=== PATIENT | female | born 1940 | race Caucasian/White ===

== ENCOUNTER 2017-09-13 14:11 | Inpatient (IN) | payer MEDICARE ==
[~2017-09-13] VITALS: Ht 165.1 cm; Wt 96.8 kg
[2017-09-13] VITALS (10 sets, daily range): BP systolic 97–156; BP diastolic 50–72
--- NOTE | ~2017-09-13 | CON ---
[place], [place] REPORT OF CONSULTATION NAME: BOLIVAR BROCK UNIT #: [id number] ROOM: 420 DOCTOR: NELSON DONNELLY MD BIRTHDATE: [birth year] DOS: 09/17/2017 CHIEF COMPLAINT: "I don't know what I am doing here, when do I get to leave?" HISTORY OF PRESENT ILLNESS: This is a 76-year-old female who presented to [facility] from the [facility] with increased confusion with a low pulse ox reading. The patient was ultimately diagnosed with severe sepsis, acute respiratory failure with hypoxia, bronchitis, acute on chronic renal failure, metabolic encephalopathy. The patient of note from a psychiatric standpoint does have a history of depression and has had a significantly poor appetite as well as some sleep issues, this despite being on Cymbalta. MENTAL STATUS: The patient is alert and oriented to person and place. She is not oriented to time. She could not tell me how long she has been here, stating that she has been here for several weeks. When I asked her where she had come from, whether it was home or a nursing facility, she stated that she was admitted directly from home in to the hospital. There are significant mental status gaps. She does come across as being somewhat depressed with a little bit of a blunted affect. There is no brittany or hypomania. There are no overt auditory or visual hallucinations. No delusions, no paranoia. Short term memory has gaps. DIAGNOSIS: Major depression, recurrent. PLAN: Given the fact that she continues to have significant poor appetite, I will discontinue the Cymbalta in lieu of Remeron 15 mg at bedtime. At this point, she is not suicidal or homicidal and does not represent substantial risk to self, so I see no reason to force her to the [facility], rather if she does return to the [facility], I can follow her upon her readmission there. NELSON DONNELLY MD CM:CONSTR:REPORT OF CONSULTATION 1023 09/17/17 2140 interface
--- NOTE | ~2017-09-13 | PROC NOTE ---
[place], [place] PROCEDURE NOTE [id number] UN[facility] #: [id number] ROOM: 420 DOCTOR: MARCIO SANCHEZ BIRTHDATE: [birth year] DOS: 09/15/2017 MODIFIED BARIUM SWALLOW LOCATION: [facility], room 428, bed 1. DOCTOR: Dr. Almaraz. RADIOLOGIST: Dr. Dong. BACKGROUND INFORMATION: The patient is a 76-year-old female who was seen for a modified barium swallow. This test was ordered to determine most appropriate diet consistency. Medical history is significant for recent fall with brain bleed, multiple fractures of the ribs and fractured sacrum. Further medical history includes severe sepsis, acute respiratory failure with hypoxia and metabolic encephalopathy. This patient comes from a intermediate. She had been ordered an outpatient modified barium swallow, which was scheduled to be completed 09/14/2017, however, was unable to be completed due to patient being sent to the hospital. The patient was seen at bedside yesterday and at that time displayed significant confusion. She was recommended yesterday to continue with a soft diet and honey-thick liquids. When seen for treatment today, the patient was noted to be much more alert and responsive. She was trialled with thin liquids and appeared to tolerate them well. Therefore, modified barium swallow was recommended in order to determine candidacy for diet upgrade. For today's study, the patient was alert and able to follow commands. Oral peripheral examination revealed presence of upper and lower dentures. Lingual, labial and buccal skills were within normal limits in terms of strength, range of motion and coordination. The patient was able to volitionally cough and swallow. METHODS AND MATERIALS USED FOR THE EXAM: The patient was positioned in the lateral plane and the exam was viewed under fluoroscopy. The patient was presented with a variety of consistencies to assess swallowing skills including applesauce mixed with barium presented in half teaspoon amounts, barium-coated cookie presented in bite size piece and nectar and thin liquid barium taken by cup in single sip size amounts. ORAL PHASE: Unremarkable. PHARYNGEAL PHASE: Unremarkable. ESOPHAGEAL PHASE: This phase of the swallow was not formally assessed during this examination. IMPRESSIONS AND RECOMMENDATIONS: Based upon assessment results, this 76-year-old patient presents with oral and pharyngeal swallowing skills that are within normal limits. Recommend regular diet and thin liquids. Follow up swallowing therapy is not recommended at this time. The patient would benefit from assessment of cognitive skills due to her history as well as current confusion. Results and recommendations were shared with the patient and her [place], [place] PROCEDURE NOTE NAME: BOLIVAR BROCK UNIT #: [id number] ROOM: [facility] DOCTOR: MARCIO SANCHEZ BIRTHDATE: [birth year] nurse and they verbalized understanding. Thank you very much for this referral. Should you have any questions regarding this patient, please contact the speech pathologist at [phone]. MARCIO SANCHEZ CM:PROCNOTE:PROCEDURE NOTE [id number] MARCIO SANCHEZ
[2017-09-13] MEDS ORDERED: ATIVAN1 MG PO (14:30)
[2017-09-13] MEDS ORDERED: ASPIRIN81 M1 PO (14:30)
[2017-09-13] MEDS ORDERED: GLUCOTROL5 MG PO (14:31)
[2017-09-13] MEDS ORDERED: CYMBALTA60 MG PO (14:31)
[2017-09-13] MEDS ORDERED: GABAPENTIN100 M2 PO (14:31)
[2017-09-13] MEDS ORDERED: NORVASC5 MG PO (14:32)
[2017-09-13] MEDS ORDERED: MYRBETRIQ50 M1 PO (14:32)
[2017-09-13] MEDS ORDERED: COZAAR50 M1 PO (14:32)
[2017-09-13] MEDS ORDERED: OXYCODONE HCL10 M1 PO (14:33)
[2017-09-13] MEDS ORDERED: OCUVITE EYE +1 EACH PO (14:33)
[2017-09-13] MEDS ORDERED: PERCOCET 5-3251 EACH PO (14:34)
[2017-09-13] MEDS ORDERED: ZANTAC 150150 MG PO (14:34)
[2017-09-13] MEDS ORDERED: PRAVACHOL40 MG PO (14:34)
[2017-09-13] MEDS ORDERED: SYNTHROID25 MCG PO (14:34)
[2017-09-13 15:02] LABS: BASO % 0.2 % (0.0-1.0); EOS # 0.1 10*3/uL (0.0-0.4); EOS % 0.3 % (1.0-4.0); HEMATOCRIT 32.3 % (37.0-47.0); HEMOGLOBIN 9.6 g/dl (12.0-16.0); LYMPH # 0.8 10*3/uL (1.3-4.4); LYMPH % 5.2 % (27.0-41.0); MEAN CELL VOLUME 91.5 fl (81.0-99.0); MEAN CORPUSCULAR HGB 27.2 pg (27.0-31.0); MEAN CORPUSCULAR HGB CONC 29.7 g/dl (33.0-37.0); MEAN PLATELET VOLUME 9.7 fl (9.6-12.3); MONO # 0.6 10*3/uL (0.1-1.0); MONO % 3.7 % (3.0-9.0); NEUT % 89.9 % (47.0-73.0); PLATELET COUNT AUTOMATED 479 10*3/uL (130-400); RED BLOOD COUNT 3.53 10*6/uL (4.10-5.10); RED CELL DISTRI WIDTH 18.9 % (0-14.5); WHITE BLOOD COUNT 15.5 10*3/uL (4.8-10.8)
--- NOTE | 2017-09-13 15:02 | NUR ---
JO CATH INSERTED PER POLICY, TOLERATED WELL. 1000 CC RUSS URINE IN BAG. JO CLAMPED. BP STABLE. WILL CONTINUE TO MONITOR. ALSO CHANGED NON REBREATHER TO NC POX 96%.
[2017-09-13 15:09] LABS: BILIRUBIN NEGATIVE (NEGATIVE); BLOOD NEGATIVE (NEGATIVE); CLARITY SL CLOUDY (CLEAR); COLOR YELLOW (YELLOW); GLUCOSE NEGATIVE (NEGATIVE); KETONE NEGATIVE (NEGATIVE); LEUKO ESTERASE TRACE (NEGATIVE); NITRITE NEGATIVE (NEGATIVE)
[2017-09-13 15:11] LABS: ACT PARTIAL THROMBO TIME 28.7 SECONDS (20.8-31.5)
[2017-09-13 15:19] LABS: ALBUMIN 2.9 gm/dl (3.1-4.5); ALKALINE PHOSPHATASE 205 U/L (45-117); BUN 37 mg/dl (7-24); CHLORIDE 99 mmol/L (98-107); CREATININE 1.89 mg/dL (0.55-1.02); LIPASE 112 U/L (73-393); MAGNESIUM 2.4 mg/dL (1.5-2.1); POTASSIUM 5.8 mmol/L (3.5-5.1); SGOT/AST 18 IU/L (3-35); SGPT/ALT 16 U/L (12-78); SODIUM 134 mmol/L (136-145); TOTAL PROTEIN 7.9 gm/dL (6.4-8.2)
[2017-09-13 15:29] LABS: TROPONIN I < 0.015 ng/ml (<0.045)
[2017-09-13 15:44] LABS: BACTERIA TRACE; RBC 0-2 rbc/hpf (0-2); WBC 0-2 wbc/hpf (0-5); YEAST 3+
--- NOTE | 2017-09-13 15:45 | NUR ---
JO CATH UNCLAMPED, AN ADDITIONAL 1000 CC PRODUCED. BP REMINS STABLE
--- NOTE | 2017-09-13 16:02 | NUR ---
PT RESTING IN BED, FAMILY PRESENT. NO RESP DISTRESS NOTED. AWAKENS WHEN PROMPTED.
--- NOTE | 2017-09-13 16:10 | NUR ---
PT TO CT AT THIS TIME
--- NOTE | 2017-09-13 16:35 | NUR ---
PERSONS TO NOTIFY: ADRIAN [phone] (SON) LUCILLE [phone] (DAUGHT IN LAW)
--- NOTE | 2017-09-13 17:35 | NUR ---
PT TRANSPORTED TO ROOM 420 VIA BED. IVF AND LEVAQUIN INFUSING VIA PUMP. PT IS ALERT, CONFUSED. VSS. FAMILY PRESENT. THORACIC BRACE WITH PT. FAMILY HAS CLOTHING
--- NOTE | 2017-09-13 18:40 | NUR ---
Time: 1829 A 76 year old F admitted to 4E under services of DONIS GALLOWAY DO. Pt. arrived via stretcher from ER. Chief complaint: LETHARGY, DECREASED SPO2, CONFUSION BARBRA PICKARD
--- NOTE | 2017-09-13 20:10 | NUR ---
PT RESTING IN BED. MEDICATED WITH LACTULOSE AND SUPPOSITORY PER ORDER. NO C/O AT THIS TIME. IVF INFUSING WITH NO PROBLEM. ALERT TO NAME AND PLACE, PT FORGETFUL. BED ALARM ON. CALL LIGHT IN REACH. SEE SHIFT ASSESSMENT.
--- NOTE | 2017-09-13 22:30 | NUR ---
PT RESTING IN BED. RESP-EASY AND REGULAR. BSG-225, SEE EMAR. CALL LIGHT IN REACH. BED ALARM ON.
[2017-09-14] VITALS: BP 120/56
--- NOTE | 2017-09-14 00:10 | NUR ---
PT CLEANED UP FOR SMALL AMOUNT LOOSE BROWN STOOL. REPOSITIONED IN BED. CALL LIGHT IN REACH. SEE SHIFT ASSESSMENT. BED ALARM ON.
--- NOTE | 2017-09-14 04:00 | NUR ---
PT RESTING IN BED WITH EYES CLOSED. RESPE-ASY AND REGULAR. CALL LIGHT IN REACH. BED ALARM ON.
[2017-09-14 04:51] LABS: HEMATOCRIT 28.3 % (37.0-47.0); HEMOGLOBIN 8.7 g/dl (12.0-16.0); MEAN CORPUSCULAR HGB 27.4 pg (27.0-31.0); MEAN CORPUSCULAR HGB CONC 30.7 g/dl (33.0-37.0); MEAN PLATELET VOLUME 9.8 fl (9.6-12.3); PLATELET COUNT AUTOMATED 388 10*3/uL (130-400); RED BLOOD COUNT 3.18 10*6/uL (4.10-5.10); RED CELL DISTRI WIDTH 18.4 % (0-14.5)
[2017-09-14 05:11] LABS: PLATELET SUFFICIENCY NORMAL (NORMAL); TOTAL CELLS COUNTED 100 #CELLS
[2017-09-14 05:12] LABS: OVALOCYTES FEW
[2017-09-14 05:21] LABS: ALBUMIN 2.5 gm/dl (3.1-4.5); CREATININE 1.47 mg/dL (0.55-1.02); MAGNESIUM 2.3 mg/dL (1.5-2.1); PHOSPHOROUS 3.1 mg/dL (2.5-4.9); TOTAL PROTEIN 6.9 gm/dL (6.4-8.2)
[2017-09-14 05:26] LABS: THYROID STIM HORMONE (HS) 0.151 uIU/ml (0.358-4.75)
[2017-09-14 05:29] LABS: POTASSIUM 4.3 mmol/L (3.5-5.1)
--- NOTE | 2017-09-14 06:00 | NUR ---
PT CLEANED UP FOR LOOSE BROWN STOOL. BATHED. BSG-161, SEE EMAR. CALL LIGHT IN REACH. BED ALARM ON.
[2017-09-14 08:00] VITALS: BP 123/53
--- NOTE | 2017-09-14 08:30 | NUR ---
TRANSFORMER COIL WINDER VS. PT IS CONFUSED. PER CHART, PT COMES FROM [facility]. WILL CHECK WITH [facility] FOR RETURN NEEDS.
[2017-09-14 09:17] LABS: VITAMIN D, 25-HYDROXY 38.4 ng/mL (30-100)
--- NOTE | 2017-09-14 09:31 | NUR ---
SPEECH PATHOLOGY Bedside swallowing evaluation completed as per orders. Patient was awake and responsive but extremely confused. She had difficulty following simple commands, kept her eyes closed, and showed decreased awareness of spoon and food given. She needed cues to improve her awareness. She was assessed with puree, soft solid and honey thick liquid. She tolerated all items given, with safe swallow strategies implemented. Recommend she remain on present diet of soft food and honey thick liquid. Recommend use of swallowing strategies when feeding to ensure safety. These include upright positioning for meals, cues and explanation of what she is eating/drinking to improve her awareness and small bites and sips. Follow up therapy is recommended to improve safety with highest level diet through strategies and education. Refer to report in [facility] for further information. Thank you for this referral. MARCIO SANCHEZ MSCCC-LABORATORY CLERK
--- NOTE | 2017-09-14 10:55 | NUR ---
DR. DONNELLY CALLED AND NOTIFIED OF PATIENT CONSULT. THE DR WAS UPDATED ON PATIENT CONDITION AND GIVEN REASON FOR CONSULT. NO CONCERNS FROM THE DR. HE STATED HE WOULD BE IN TOMORROW TO SEE THE PT.
[2017-09-14 12:00] VITALS: BP 125/64
[2017-09-14 16:00] VITALS: BP 137/71
[2017-09-14 20:00] VITALS: BP 111/51
[2017-09-15] VITALS: BP 119/64
--- NOTE | 2017-09-15 00:15 | NUR ---
24 HR chart check completed.
[2017-09-15 05:59] LABS: BASO % 0.1 % (0.0-1.0); HEMATOCRIT 28.3 % (37.0-47.0); HEMOGLOBIN 8.5 g/dl (12.0-16.0); LYMPH # 0.9 10*3/uL (1.3-4.4); LYMPH % 6.4 % (27.0-41.0); MEAN CELL VOLUME 91.9 fl (81.0-99.0); MEAN CORPUSCULAR HGB 27.6 pg (27.0-31.0); MEAN PLATELET VOLUME 9.5 fl (9.6-12.3); MONO # 0.3 10*3/uL (0.1-1.0); MONO % 2.2 % (3.0-9.0); NEUT # 12.4 10*3/uL (2.3-7.9); PLATELET COUNT AUTOMATED 405 10*3/uL (130-400); RED BLOOD COUNT 3.08 10*6/uL (4.10-5.10); RED CELL DISTRI WIDTH 18.5 % (0-14.5); WHITE BLOOD COUNT 13.8 10*3/uL (4.8-10.8)
[2017-09-15 06:19] LABS: CREATININE 1.24 mg/dL (0.55-1.02); POTASSIUM 4.6 mmol/L (3.5-5.1)
[2017-09-15 08:00] VITALS: BP 128/84
--- NOTE | 2017-09-15 08:30 | NUR ---
PATIENT IS RESTING IN BED. PATIENT IS BREATHING EASILY ON 2LPM VIA NC. PATIENT HAD NO FURTHER REQUESTS OR COMPLAINTS UPON ASSESSMENT. WILL CONTINUE TO MONITOR PATIENT, SEE SHIFT ASSESSMENT. STUDENT NURSE ON FLOOR AND PERFORMING DOCUMENTATION AND MEDICATION ADMINISTRATION.
--- NOTE | 2017-09-15 08:52 | NUR ---
NOTIFIED DR. GUTIERREZ ABOUT SPEECH THERAPY'S RECOMMENDATION FOR A BARIUM SWALLOW TEST.
--- NOTE | 2017-09-15 08:57 | NUR ---
SPEECH PATHOLOGY Patient was seen for treatment this am. Patient was noted to be much more alert and appropriate today. She was sitting upright in bed setting up her breakfast tray when clinician arrived. Patient answered questions appropriately and participated in conversation. She fed herself and displayed no overt difficulty with food items. Trial with thin liquids was conducted. Patient swallowed multiple sips of coffee and juice with a timely swallow and no cough or wet vocal quality however a delayed cough was eventually noted. Patient had been scheduled as an outpatient for a MBS yesterday however due to hospital admission and poor condition yesterday she was not appropriate for the assessment. It is now recommended that patient undergo MBS to determine candidacy for advancement of diet. This recommendation was discussed with patient and her nurse and they verbalized understanding. Recommend patient remain on present diet until completion of swallow study. Following liquid trial, clinician thickened liquids on patient's tray for safety. Continue therapy plan. MARCIO SANCHEZ MSCCC-UNDERTAKER ASSISTANT
[2017-09-15 12:00] VITALS: BP 137/80
--- NOTE | 2017-09-15 12:39 | NUR ---
PHYSICAL THERAPY PAtient at modified barium swallow. Lisa Jacqueline Rmoan,PT
--- NOTE | 2017-09-15 12:56 | NUR ---
SPEECH PATHOLOGY MBS completed as per orders. Patient was alert and cooperative. She was challenged with puree, soft solid food, nectar thick liquid and thin liquids. Patient displayed oral and pharyngeal swallowing skills WNL for all consistencies given. Recommend regular diet and thin liquids. Due to patient's recent history of a brain bleed from a fall, resulting in confusion, recommend full assessment of cognitive funtioning to determine deficits and candidacy for therapy. Will speak with patient's nurse regarding results and recommendations mentioned. Dictated report to follow. Thank you for this referral. MARCIO SANCHEZ MS CCC-WEBSPHERE MESSAGE BROKER DEVELOPER
--- NOTE | 2017-09-15 14:59 | NUR ---
PHYSICAL THERAPY Patient evaluated on 4, full evaluation to follow. Continue with PT as per plan of care with fall, multiple rib fracturs, Back brace when OOB and alarm precautions. PAtient is high complexity via chart review, tests and evaluation: 86115. Will require return to SNF, thank you for this referral. Lisa Roman,PT
--- NOTE | 2017-09-15 15:48 | NUR ---
PATIENT RESTING IN BEDSIDE CHAIR. PATIENT WEARING TORSO BRACE TO STABILIZE BACK. PATIENT HAS NO REQUESTS AT THIS TIME. SEE SHIFT ASSESSMENT.
[2017-09-15 16:00] VITALS: BP 116/78
--- NOTE | 2017-09-15 18:45 | NUR ---
PATIENT RESTING IN BED. PATIENT DENIES SOB WHILE RECEIVING 2LPM VIA NC. PATIENT DENIES ANY PAIN OR DISCOMFORT AT THIS TIME. SEE SHIFT ASSESSMENT.
[2017-09-15 20:00] VITALS: BP 137/86
--- NOTE | 2017-09-15 20:00 | NUR ---
PATIENT SITTING UP IN BED, STATED SHE IS FEELING BETTER AND HAD A GOOD NIGHT LAST NIGHT. PATIENT HAS NO COMPLAINTS AT THIS TIME. WILL CONTINUE TO MONITOR. PATIENT LEFT WITH CALL LIGHT IN REACH.
[2017-09-16] VITALS: BP 151/84
[2017-09-16 06:10] LABS: BASO % 0.1 % (0.0-1.0); HEMATOCRIT 29.3 % (37.0-47.0); HEMOGLOBIN 8.8 g/dl (12.0-16.0); LYMPH % 8.4 % (27.0-41.0); MEAN CELL VOLUME 91.3 fl (81.0-99.0); MEAN CORPUSCULAR HGB 27.4 pg (27.0-31.0); MEAN PLATELET VOLUME 9.7 fl (9.6-12.3); MONO # 0.2 10*3/uL (0.1-1.0); MONO % 1.8 % (3.0-9.0); NEUT # 10.9 10*3/uL (2.3-7.9); NEUT % 88.5 % (47.0-73.0); PLATELET COUNT AUTOMATED 427 10*3/uL (130-400); RED BLOOD COUNT 3.21 10*6/uL (4.10-5.10); RED CELL DISTRI WIDTH 18.2 % (0-14.5); WHITE BLOOD COUNT 12.4 10*3/uL (4.8-10.8)
[2017-09-16 06:41] LABS: BUN 22 mg/dl (7-24); CHLORIDE 108 mmol/L (98-107); CREATININE 1.02 mg/dL (0.55-1.02); POTASSIUM 4.6 mmol/L (3.5-5.1); SODIUM 143 mmol/L (136-145)
--- NOTE | 2017-09-16 07:28 | NUR ---
Rested quietly in bed with eyes closed through the night. Resp easy and regular. Will continue to monitor.
[2017-09-16 08:00] VITALS: BP 128/76; BP 142/72
--- NOTE | 2017-09-16 08:33 | NUR ---
PATIENT RESTING IN BED ON THEIR RIGHT SIDE. PATIENT DENIES PAIN, DISCOMFORT, AND SOB. PATIENT IS ABLE TO REPOSITION WITH ASSISTANCE, AND IS RECEIVING 2LPM VIA NC. CALL LIGHT IS WITHIN REACH. SEE SHIFT ASSESSMENT.
--- NOTE | 2017-09-16 10:32 | NUR ---
PHYSICAL THERAPY Pt seen this AM 1:1 for her therapy session, Pt on 2 L o2. Transfer supine/sit with MOD A X 1, and did well, sitting balance once up supervision X 1, and said that this feels good x 6 MIN. Couldnot get Pt's back brace on and she said lets go i dont like it anyway. Gait with W/W 22' X 1, MIN SURGICAL SPECIALIST X 1, and no complaint. Pt up in her bedside chair followed by act Ex X 20 reps each to bilateral LE of marching, LAQ's, and ankle pumps. LESTER CIFUENTES LUBRICATION SUPERVISOR.
[2017-09-16 12:00] VITALS: BP 168/98
--- NOTE | 2017-09-16 13:15 | NUR ---
PATIENT IS SITTING UP IN THE CHAIR WEARING THE BACK BRACE. PATIENT IS ABLE TO TRANSFER FROM BED TO CHAIR WITH ONE ASSIST. PATIENT STATES FEELING A LITTLE STIFF, BUT DENIES AND PAIN OR SOB. PATIENT HAD NOT FURTHER COMPLAINTS OR REQUESTS AT THIS TIME. CALL LIGHT IS WITHIN REACH.
--- NOTE | 2017-09-16 14:05 | NUR ---
SPEECH PATHOLOGY PT WAS SEEN THIS AM TO EVALUATE TOLERANCE TO CURRENT DIET, REGULAR FOODS WITH THIN LIQUIDS, AND TO ASSESS COGNITION. GENERAL COMMENTS: DISCUSSED CASE WITH PT'S RN. SHE REPORTED THAT PT HAS BEEN TOLERATING DIET W/O DIFFICULTY. UPON ENTRANCE TO ROOM, PT WAS AWAKE AND SEATED UPRIGHT IN A BEDSIDE CHAIR. SHE REMAINED AWAKE, ALERT, AND COOPERATIVE THROUGHOUT THE ENCOUNTER. PT APPEARED CONFUSED AT TIMES AND ASKED THE SAME QUESTIONS MULTIPLE TIMES. SHE REPORTED THAT SHE HAS BEEN EATING/DRINKING W/O DIFFICULTY. PT ENDORSED COGNITIVE CHANGE, NOTING THAT SHE IS NOT ABLE TO REMEMBER HER FALL. SHE DID NOT ELABORATE ON FURTHER DIFFICULTIES. SWALLOWING: PT SELF-FED THIN LIQUIDS VIA CUP. NO OVERT S/S OF ASPIRATION/PENETRATION WERE OBSERVED. PT DECLINED ADDITIONAL CONSISTENCIES. COGNITIVE SCREENING: THE NELSON COGNITIVE ASSESSMENT WAS ADMINISTERED. MS. BROCK RECEIVED A SCORE OF 15/30, WHERE THE CUT-OFF FOR NORMAL RANGE IS 26/30. SHE DEMONSTRATED DIFFICULTY WITH VISUOSPATIAL TASKS. WHEN DRAWING A CLOCK, SHE WROTE THE SAME NUMBER TWICE AND DID NOT CORRECTLY PLACE THE HANDS. SHE ALSO DEMONSTRATED DIFFICULTY WITH DELAYED RECALL, SHE RECALLED 0/5 WORDS. ADDITIONAL DIFFICULTY OCCURRED IN THE DOMAINS OF LANGUAGE AND ATTENTION, SHE WAS UNABLE TO COMPLETE A GENERATIVE NAMING TASK AND WAS UNABLE TO SUBTRACT SERIAL 7'S FROM 100. IMPRESSIONS: MS. BROCK CLINICALLY APPEARS TO BE TOLERATING HER CURRENT DIET OF REGULAR FODOS WITH THIN LIQUIDS. ON A COGNITIVE SCREENING, SHE FELL BELOW THE CUT-OFF SCORE FOR NORMAL RANGE (SCORE OF 15/30) AND DEMONSTRATED IMPAIRMENTS IN VISUOSPATIAL AWARENESS, LANGUAGE, ATTENTION, AND MEMORY. RECOMMENDATIONS: 1. CONTINUE CURRENT DIET OF REGULAR FOODS WITH THIN LIQUIDS 2. STANDARD ASPIRATION PRECAUTIONS: FULLY UPRIGHT, AWAKE, AND ALERT FOR ALL PO; SMALL BITES/SIPS; ORAL CARE AT LEAST BID 3. ADDITIONAL COGNITIVE EVALUATION/TREATMENT APPROPRIATE POC: SAND BUFFER SERVICE WILL F/U TO FURTHER EVALUATE COGNITIVE STATUS AND INITIATE TREATMENT APPROPRIATE. THE ABOVE WAS REVIEWED WITH PT'S RN WHO EXPRESSED UNDERSTANDING AND AGREEMENT WITH POC. LEIA FU [facility]-S[facility]
--- NOTE | 2017-09-16 15:45 | NUR ---
PATIENT IS RESTING IN BED, FAMILY MEMBER IS AT THE PATIENTS BEDSIDE. STUDENTS ARE ON THE FLOOR AND WILL BE HANDLING DOCUMENTATION AND MED ADMINISTRATION.
[2017-09-16 16:00] VITALS: BP 142/94
[2017-09-16 16:09] VITALS: BP 142/94
--- NOTE | 2017-09-16 16:13 | NUR ---
CALLED DR. GUTIERREZ MADE AWARE OF PT BP 142/94. HE WILL LOOK AT BP TREND.
[2017-09-17] VITALS: BP 138/71
--- NOTE | 2017-09-17 | NUR ---
RESTING IN BED WITH HOB SLIGHTLY ELEVATED. 02 INTACT 2LPM VIA NASAL CANNULA. LUNGS DIMINISHED BILATERALLY WITH A MOIST NONPRODUCTIVE COUGH NOTED. NO DISTRESS NOTED; CALL LIGHT WITHIN REACH.
--- NOTE | 2017-09-17 05:39 | NUR ---
BLOOD SUGAR 118; NO COVERAGE REQUIRED.
[2017-09-17 06:47] LABS: HEMATOCRIT 29.8 % (37.0-47.0); HEMOGLOBIN 9.1 g/dl (12.0-16.0); MEAN CELL VOLUME 88.7 fl (81.0-99.0); MEAN CORPUSCULAR HGB 27.1 pg (27.0-31.0); MEAN CORPUSCULAR HGB CONC 30.5 g/dl (33.0-37.0); MEAN PLATELET VOLUME 9.1 fl (9.6-12.3); PLATELET COUNT AUTOMATED 411 10*3/uL (130-400); RED BLOOD COUNT 3.36 10*6/uL (4.10-5.10); RED CELL DISTRI WIDTH 17.7 % (0-14.5); WHITE BLOOD COUNT 11.2 10*3/uL (4.8-10.8)
[2017-09-17 07:06] LABS: PLATELET SUFFICIENCY NORMAL (NORMAL); POLYCHROMASIA SLIGHT; TOTAL CELLS COUNTED 100 #CELLS
[2017-09-17 07:12] LABS: BUN 21 mg/dl (7-24); CHLORIDE 104 mmol/L (98-107); CREATININE 1.03 mg/dL (0.55-1.02); POTASSIUM 4.5 mmol/L (3.5-5.1); SODIUM 141 mmol/L (136-145)
[2017-09-17 08:00] VITALS: BP 164/94
--- NOTE | 2017-09-17 08:14 | NUR ---
PHYSICAL THERAPY Patient presented to therapy with report of moderate pain in her rib cage. Patient says she wants ot go home. She also agrees to therapy today. Patient performed supine to siitting at EOB transfer with Supervision. Patient donned brace with assistance from this MACHINE TOOL DESIGNER. Patient performed sit to stand transfer with CGA X 1. Patient performed gait with W/W 10' X 2 WITH SEATED REST BREAK AFTER THE FIRST 10'. Patient performed ther ex in seated position in all planes of mvmt. x 20 reps each. Patient was left sitting in bedside chair with call light within reach and LEs raised. Patient was 1:1 with this MACHINE TOOL DESIGNER for 25 minutes total. Kapil Mckeon MACHINE TOOL DESIGNER
--- NOTE | 2017-09-17 08:31 | NUR ---
SPEECH PATHOLOGY Patient was seen for treatment this am. Patient was alert and cooperative, sitting in bedside chair. Patient was waiting for breakfast to arrive and reported that she continues to do well with foods and liquids, having no difficulty with chewing or swallowing. Improvement of cognitive skills was targeted this am. Patient correctly answered spatial/temporal orientation skills 5/10 trials. Recent memory questions were answered correctly 1/5 trials. She provided correct responses to problem solving questions 4/5 trials. For all tasks, corrections were provided for her responses in error. Education was provided regarding use of external aids to improve her memory and orientation. Patient verbalized understanding. Continue therapy plan. MARCIO SANCHEZ MSCCC-MEDICARE SALES REPRESENTATIVE
[2017-09-17 12:00] VITALS: BP 176/88
--- NOTE | 2017-09-17 14:17 | NUR ---
Patient comes from the [facility] and can return when medically stable for discharge.
[2017-09-17 16:00] VITALS: BP 149/93
[2017-09-17 20:00] VITALS: BP 140/84
--- NOTE | 2017-09-17 20:00 | NUR ---
[id number] SITTING UP IN BED. 02 INTACT AT 2LPM VIA NASAL CANNULA. PT. VOICES NO C/O AT THIS TIME. CALL LIGHT WITHIN REACH.
--- NOTE | 2017-09-17 22:00 | NUR ---
BLOOD SUGAR 205; 3 UNITS OF COVERAGE GIVEN PER EMAR.
[2017-09-18] VITALS: BP 129/65
--- NOTE | 2017-09-18 05:30 | NUR ---
BLOOD SUGAR 57. TOOK PT. ORANGE JUICE, KEVEN CRACKERS & PEANUT BUTTER.
--- NOTE | 2017-09-18 06:00 | NUR ---
BLOOD SUGAR 73.
[2017-09-18 08:00] VITALS: BP 136/81
--- NOTE | 2017-09-18 08:00 | NUR ---
UP IN CHAIR EATING BREAKFAST, NO C/O NO DISTRESS NOTED. SEE SHIFT ASSESSMENT.
--- NOTE | 2017-09-18 10:56 | NUR ---
PHYSICAL THERAPY Yesika seen for her therapy session Pt supine in bed. Transfer supine/sit with MOD A X 1, up into sitting MOD A X 1, sitting balance while donned her back brace on with help from therapy which she needs help getting on. Sit/stand, standing balance with wheeled walker MOD A X 1. Then gait total 19' X 1, slow and steady with MIN/MOD ASSISTANT PROFESSOR OF DRAMA X 1, with cueing for safety and sit slow, Pt on 2 L o2 at all times having no new complaint. End with act Ex to bilateral LE marching, LAQ's and ankle pumps with cueing for each Ex X 20 reps each. LESTER CIFUENTES GLOBE CLEANER.
[2017-09-18 12:00] VITALS: BP 121/76
--- NOTE | 2017-09-18 14:17 | NUR ---
PHYSICAL THERAPY CO-SIGN I approve of the Phyical Therapy notes written above. TAWNY MENJIVAR PT
--- NOTE | 2017-09-18 14:35 | NUR ---
PT WAS ASSESSED FOR HOME OXYGEN. PT DID NOT QUALIFY. PT WAS NOT ABLE TO AMULATE AT THIS TIME. PT IS FROM LOCAL NURSING FACILITY PT SPO2 96-99% RA B/P 136/77, HR 79, RR 16.
[2017-09-18] MEDS ORDERED: OXYCODONE HCL10 M1 PO (14:48)
[2017-09-18] MEDS ORDERED: PREDNISONE10 MG PO (14:48)
[2017-09-18] MEDS ORDERED: MIRTAZAPINE15 M2 PO (14:48)
[2017-09-18] MEDS ORDERED: ATIVAN1 MG PO (14:48)
[2017-09-18] MEDS ORDERED: NATURE'S BLEND F1 MG PO (14:48)
[2017-09-18] MEDS ORDERED: PERCOCET 5-3251 EACH PO (14:48)
[2017-09-18] MEDS ORDERED: B12,B-12,B 12500 MC1 PO (14:48)
[2017-09-18] MEDS ORDERED: DUONEB 3 MG/3 ML3 M1 NEB (14:48)
[2017-09-18] MEDS ORDERED: AMLODIPINE BESY10 MG PO (14:48)
--- NOTE | 2017-09-18 14:50 | NUR ---
speech daily note Patient seen at bedside Problem solivng and reason for needs and safety in this environment 90%. Recall novel info. poor for general info. and details. Recall daily events for general and details 3/4 75%. Oriented times 4 100%. Nurse reports she has improved her cognition. Therapy to continue and focus on immediate adn delayed memory skills. Liya Ordonez MA [facility]-SUPERVISOR SHIPFITTERS
[2017-09-18] MEDS ORDERED: DOXYCYCLINE100 M3 PO (14:51)
--- NOTE | 2017-09-18 15:00 | NUR ---
REPORT CALLED TO [facility].
[2017-09-18 16:00] VITALS: BP 135/72
--- NOTE | 2017-09-18 18:45 | NUR ---
DISCHARGED TO [facility] VIA [facility].
== END 2017-09-18 18:45 | disposition other institution (70) | DRG 871 ==
LOC: ED 14:11 → EDHOLD 17:03 → 4E 17:03
PROVIDERS: Emergency Medicine; Internal Medicine; Internal Medicine Nephrology; ADMIT Internal Medicine
PROC: BD1BYZZ Fluoroscopy of Mouth/Oropharynx using Other Contrast (ICD-10-PCS; principal; 2017-09-15)
PROC: BD11YZZ Fluoroscopy of Esophagus using Other Contrast (ICD-10-PCS; principal; 2017-09-15)
DX: A41.9 Sepsis, unspecified organism (principal); J96.01 Acute respiratory failure with hypoxia; N17.1 Acute kidney failure with acute cortical necrosis; E43 Unspecified severe protein-calorie malnutrition; G93.41 Metabolic encephalopathy; I95.89 Other hypotension; J18.9 Pneumonia, unspecified organism; R13.10 Dysphagia, unspecified; E11.22 Type 2 diabetes mellitus with diabetic chronic kidney disease; E11.65 Type 2 diabetes mellitus with hyperglycemia; F33.9 Major depressive disorder, recurrent, unspecified; E87.1 Hypo-osmolality and hyponatremia; E86.0 Dehydration; R65.20 Severe sepsis without septic shock; N18.3 Chronic kidney disease, stage 3 (moderate); J40 Bronchitis, not specified as acute or chronic; K59.03 Drug induced constipation; T40.2X5A Adverse effect of other opioids, initial encounter; Y92.89 Other specified places as the place of occurrence of the external cause; R33.9 Retention of urine, unspecified; R79.82 Elevated C-reactive protein (CRP); S22.42XD Multiple fractures of ribs, left side, subsequent encounter for fracture with routine healing; I25.10 Atherosclerotic heart disease of native coronary artery without angina pectoris; I12.9 Hypertensive chronic kidney disease with stage 1 through stage 4 chronic kidney disease, or unspecified chronic kidney disease; E03.9 Hypothyroidism, unspecified; F41.9 Anxiety disorder, unspecified; H35.30 Unspecified macular degeneration; E78.00 Pure hypercholesterolemia, unspecified; K21.9 Gastro-esophageal reflux disease without esophagitis; D64.9 Anemia, unspecified; D47.3 Essential (hemorrhagic) thrombocythemia; E87.5 Hyperkalemia; E83.41 Hypermagnesemia; R74.8 Abnormal levels of other serum enzymes; E66.01 Morbid (severe) obesity due to excess calories; E53.8 Deficiency of other specified B group vitamins; Z88.6 Allergy status to analgesic agent; Z79.899 Other long term (current) drug therapy; Z79.82 Long term (current) use of aspirin; Z90.49 Acquired absence of other specified parts of digestive tract; Z82.49 Family history of ischemic heart disease and other diseases of the circulatory system; S32.10XD Unspecified fracture of sacrum, subsequent encounter for fracture with routine healing; Z68.35 Body mass index [BMI] 35.0-35.9, adult